=== PATIENT | female | born 1970 | race Caucasian/White ===

== ENCOUNTER → 2018-07-01 07:47 | Outpatient (CLI) | payer BC, SELFPAY ==
[2018-07-01 09:31] LABS: Absolute Lymphocyte Count 2.62 X10^3/ul (0.83-4.51); Basophil# 0.02 X10^3/uL; Basophil% 0.3 % (0-1); Eosinophil# 0.25 X10^3/uL; Eosinophils% 3.4 % (0-5); Hematocrit 46.7 % (37-47); Hemoglobin 15.5 g/dl (12.0-15.0); Lymphocyte # 2.62 X10^3/ul (4.0); Lymphocyte % 35.2 % (19-41); Mean Corp Hgb Conc 33.2 g/gl (32-36); Mean Corpuscular Hgb 29.6 pg (27.0-32.0); Mean Corpuscular Volume 89.1 fL (81-99); Mean Platelet Vol. 9.4 fl (6.2-12.0); Monocyte# 0.54 X10^3/uL; Monocyte% 7.3 % (0-10); Neutrophil # 4.01 X10^3/uL (2.7-7.7); Neutrophil % 53.8 % (47-70); Platelet Count 256 K/mm3 (150-450); RBC Distribution Width SD 38.9 fl (35.1-43.9); Red Blood Count 5.24 M/mm3 (4.2-5.4); White Blood Count 7.4 K/mm3 (4.4-11.0)
[2018-07-01 09:35] LABS: POSITIVE COUNT NO; POSITIVE DIFFERENTIAL NO; POSITIVE MORPHOLOGY NO
[2018-07-01 09:57] LABS: ALB/GLOB Ratio 1.1 RATIO (0.9-2.4); AST(SGOT) 17 U/L (15-37); Alanine Aminotransfer ALT/SGPT 33 U/L (13-56); Albumin, Serum 3.8 g/dL (3.2-5.0); Alkaline Phosphatase 91 U/L (45-117); BUN 12 mg/dL (7-18); BUN/Creat Ratio 15.9 RATIO (10-20); Calcium,Total 9.2 mg/dL (8.5-10.1); Cholesterol 219 mg/dL (200); Creatinine, Serum 0.76 mg/dL (0.55-1.02); EST Glomerular Filtration Rate 86 mL/min (>60); Est Glom Filt Rate - Afr Amer 105 mL/min (>60); Globulin 3.5 g/dL (2.2-4.2); Glucose 149 mg/dL (74-106); Protein, Total 7.3 g/dL (6.4-8.2)
[2018-07-01 09:58] LABS: Anion Gap 9 (5-15); Chloride 105 mmol/L (98-107); High Density Lipoprotein 42 mg/dL; Potassium 3.9 mmol/L (3.5-5.1); Sodium Level 142 mmol/L (136-145); Triglycerides 155 mg/dL; Very Low Density Lipoprotein 31 mg/dL (5-40)
[2018-07-02 12:42] LABS: Hemoglobin A1c 6.4 % (4.2-6.3)
== END ==
PROVIDERS: Family Provider Family Medicine; PCP Family Medicine; Visit Provider Family Medicine
DX: Z00.00 Encounter for general adult medical examination without abnormal findings (principal); R73.9 Hyperglycemia, unspecified; R03.0 Elevated blood-pressure reading, without diagnosis of hypertension; E89.40 Asymptomatic postprocedural ovarian failure
CPT/HCPCS: 36415; 77080; 80053; 80061; 83036; 85025

== ENCOUNTER → 2018-07-27 07:13 | Outpatient (CLI) | payer BC, SELFPAY ==
--- NOTE | 2018-07-27 07:14 | BI_ITS ---
MAMMOGRAPHY - BILATERAL SCREENING REASON FOR EXAM: Female, 47 years old. Routine annual screening examination. PERTINENT HISTORY: Non-contributory. History of bilateral breast reduction surgery. TECHNIQUE: Digital bilateral breast ghada (3D mammographic acquisition) in the CC and MLO projections. 2-D mediolateral oblique (MLO) and craniocaudad (CC) views of both breasts were obtained. CAD: Full Field Digital Mammography with Computer Added Detection was performed. COMPARISON: Comparison is made with prior study dated October 28, 2013 and September 17, 2012. FINDINGS: Breast Composition: There are scattered areas of fibroglandular density. There are no dominant masses or suspicious calcifications. No other significant abnormalities are identified. There has been no significant change since the prior study. BI/SCREENING MAMM (CAD), BILAT IMPRESSION: Stable bilateral screening mammogram. Yearly follow-up mammogram recommended. (A) ASSESSMENT CATEGORY: BIRADS Category 1: Negative. A letter regarding these results will be sent to the patient by the facility within 30 days. Approximately 10% of breast cancers are not detected by mammography. A normal mammogram should not delay biopsy of a clinically suspicious abnormality. [id number] Electronically Signed: Leonidas Rizo MD at 9:26 EDT Tel [phone], Service support ,
== END ==
PROVIDERS: Family Provider Family Medicine; PCP Family Medicine; Visit Provider Family Medicine
DX: Z12.31 Encounter for screening mammogram for malignant neoplasm of breast (principal)
CPT/HCPCS: 77063; 77067

== ENCOUNTER → 2018-08-04 11:54 | Outpatient (CLI) | payer BC, SELFPAY ==
--- NOTE | 2018-08-04 12:06 | US_ITS ---
STUDY: ABDOMINAL ULTRASOUND - RIGHT UPPER QUADRANT REASON FOR VISIT: Female, 47 years old. Right upper quadrant pain. TECHNIQUE: Ultrasound evaluation of the right upper quadrant was performed with real-time and static castro-scale imaging. TECHNICAL QUALITY: Adequate. COMPARISON: Comparison is made with prior examination dated December 01, 2014. FINDINGS: Liver: The liver measures 16 cm. There is increased echogenicity consistent with fatty infiltration. The bile ducts are within normal limits. There is hepatic color flow. The direction of portal flow is hepatopetal. There is no demonstrated mass lesion. Gallbladder: Normal distended gallbladder. The gallbladder wall measures 3.0 mm. There is a positive sonographic Pete's sign. There is minimal pericholecystic fluid. There is a solitary echogenic gallstone in the neck of the gallbladder. Common Bile Duct (C.B.D.): The common bile duct measures 6.0 mm. Pancreas: Normal size of the head, body and tail of the pancreas. There is normal echogenicity of the pancreas. There is no demonstrated pancreatic mass or cyst. Right Kidney: Normal size of the right kidney. The right kidney measures 9.8 cm x 4.7 cm x 4.3 cm. Normal renal cortex. The right cortex measures 1.4 cm. There is no demonstrated renal mass or cyst. There is no right hydronephrosis. US/Abdomen Limited IMPRESSION: Solitary gallstone in the neck of the gallbladder with a positive Pete's sign and a minimal amount of pericholecystic fluid. Acute cholecystitis should be ruled out. Electronically Signed: Leonidas Rizo MD at 12:59 EDT Tel [phone], Service support ,
== END ==
PROVIDERS: Family Provider Family Medicine; PCP Family Medicine; Referring Provider Family Medicine; Visit Provider Family Medicine
DX: R10.11 Right upper quadrant pain (principal); K80.20 Calculus of gallbladder without cholecystitis without obstruction
CPT/HCPCS: 76705

== ENCOUNTER 2018-08-04 12:47 | Observation (INO) | payer BC, SELFPAY ==
[2018-08-04] VITALS (11 sets, daily range): BP systolic 148–167; BP diastolic 88–107; PULSE 78–98; RESP 16–17; TEMP 36.3–37.1; O2SAT 92–97; BMI 24.5; BMI 23.3
--- NOTE | 2018-08-04 09:55 | GALL_PTH ---
PATIENT: DAVON ESQUIVEL LOC: MS3 U#:[id number] AGE/SX: 47/F ROOM: [facility] RE08/04/[address]: Dr. Jasmeet Brantley MD : 1970 BED: 1 DIS: 08/05/2018 SPEC #: [id number] RECD: 08/05/18 10:30 STATUS: JOHNNA ESTRADA #: [id number] ALIN: 08/04/18 09:[address]: Jasmeet Brantley DEPT: SURGICAL PATHOLOGY RECD BY: Viet Bellamy ENTERED: 08/05/18 11:10 SP TYPE: ANDREA BROOKS DR: Dr. Aga Roblero MD Tissues: Gallbladder, NOS Procedures: Surgery Specimen Level III HEADER OPERATION: Laparoscopic, cholecystectomy with IOC PRE-OP DIAGNOSIS: Acute cholecystitis, cholelithiasis TISSUE SUBMITTED: Gallbladder MICROSCOPIC DIAGNOSIS Gallbladder: Chronic cholecystitis and cholelithiasis. SJ:benigno 08/06/18 MICROSCOPIC DESCRIPTION Slides are reviewed. GROSS DESCRIPTION Received is one container labeled with the patient's name and designated gallbladder. The specimen consists of a gallbladder measuring 8 cm in length and up to 3 cm in diameter. The external surface is pink-mendoza, smooth and glistening for the most part. Focally it is granular, hemorrhagic and contains cautery artifact. The gallbladder contains green-yellow mucoid bile and one ovoid green stone measuring 2.5 x 2 x 1.5 cm. The mucosa is bile-stained and without any mass lesions. The gallbladder wall measures up to 0.4 cm in thickness. Elevator Repair Mechanic sections from the gallbladder and the cystic duct are submitted in one cassette. / IGNACIO:benigno 08/05/18 TC:4 CPT: 25913
[2018-08-04 13:26] LABS: Absolute Lymphocyte Count 2.01 X10^3/ul (0.83-4.51); Absolute Neutrophil Count 5.4 X10^3/uL (2.0-7.7); Basophil# 0.02 X10^3/uL; Basophil% 0.2 % (0-1); Eosinophil# 0.15 X10^3/uL; Eosinophils% 1.8 % (0-5); Hematocrit 44.1 % (37-47); Hemoglobin 15.2 g/dl (12.0-15.0); Lymphocyte # 2.01 X10^3/ul (4.0); Lymphocyte % 24.5 % (19-41); Mean Corp Hgb Conc 34.5 g/gl (32-36); Mean Corpuscular Hgb 30.3 pg (27.0-32.0); Monocyte# 0.58 X10^3/uL; Monocyte% 7.1 % (0-10); Neutrophil # 5.42 X10^3/uL (2.7-7.7); Neutrophil % 66.3 % (47-70); Platelet Count 225 K/mm3 (150-450); RBC Distribution Width CV 12.1 % (11.6-14.6); RBC Distribution Width SD 38.2 fl (35.1-43.9); Red Blood Count 5.01 M/mm3 (4.2-5.4); White Blood Count 8.2 K/mm3 (4.4-11.0)
[2018-08-04 13:30] LABS: POSITIVE COUNT NO; POSITIVE DIFFERENTIAL NO; POSITIVE MORPHOLOGY NO
[2018-08-04 13:39] LABS: ALB/GLOB Ratio 1.1 RATIO (0.9-2.4); AST(SGOT) 15 U/L (15-37); Alanine Aminotransfer ALT/SGPT 32 U/L (13-56); Albumin, Serum 3.8 g/dL (3.2-5.0); Alkaline Phosphatase 91 U/L (45-117); Anion Gap 6 (5-15); BUN 6 mg/dL (7-18); BUN/Creat Ratio 8.5 RATIO (10-20); Calcium,Total 8.7 mg/dL (8.5-10.1); Chloride 109 mmol/L (98-107); Creatinine, Serum 0.71 mg/dL (0.55-1.02); EST Glomerular Filtration Rate 93 mL/min (>60); Est Glom Filt Rate - Afr Amer 112 mL/min (>60); Estimated Creatinine Clearance 86.25 ml/min; Globulin 3.4 g/dL (2.2-4.2); Glucose 121 mg/dL (74-106); Lipase 212 U/L (73-393); Potassium 3.6 mmol/L (3.5-5.1); Protein, Total 7.2 g/dL (6.4-8.2); Sodium Level 143 mmol/L (136-145)
--- NOTE | 2018-08-04 14:25 | ED.VISSUMM ---
- ER Visit Summary Date of Service: 08/04/18 Chief Complaint: Abdominal pain History of Present Illness: The patient is a 47 F presenting for evaluation secondary to abdominal pain. Patient states that about 4 years ago she had a bout of abdominal pain that spontaneously resolved and she was diagnosed as having a gallstone on ultrasound. She reports that she really has not had any issues with that recently, but reports that today this morning she had a sudden onset of right upper quadrant abdominal pain that has been a continuous unrelenting pain that is worse with palpation. She reports that it is waxing and waning associated with nausea. Patient also endorses that she has been having some generalized malaise for a week and has also been having some intermittent loose stools this week. Patient had a ultrasound ordered by her primary care today which showed pericholecystic fluid and gallstones with positive sonographic Pete sign so she was sent to the urgency department. Physical Examination: Vital signs are within normal limits, patient is afebrile. General: Patient is well-nourished well-developed and in no acute distress. Head: Normocephalic, atraumatic Eyes: Pupils equal round and reactive bilaterally, extra occular motion intact bialterally ENT: Moist mucous membranes Neck: Supple, no lymphadenopathy, no JVD, no meningismus CVS: Heart regular rate and rhythm, no murmurs, rubs or gallops, radial pulses 2+ bilaterally Resp: Respirations nondistressed, lung sounds clear bilaterally Abdomen: Right upper quadrant tenderness to palpation with a positive Pete sign. Nondistended normal bowel sounds. No evidence of diffuse rigidity. Back: Nontender Extremities: Nontender, atraumatic, active full range of motion, no peripheral edema Skin: warm, no rashes, no petechia Neuro: Alert and oriented x 4, CN 2-12 intact, no lateralizing neurological defecits Psyc: Normal affect Test Results: CBC CMP and lipase are unremarkable, right upper quadrant ultrasound shows pericholecystic fluid with a large gallstone but no evidence of wall thickening and a positive sonographic Pete sign Emergency Department Course and Treatment: She presented for evaluation secondary to abdominal pain. Exam was concerning for cholecystitis. Laboratory studies were unremarkable, but the patient's ultrasound is concerning, so I did consult Dr. Brantley who will evaluate the patient at bedside. Disposition is pending his evaluation. Disposition: Pending surgery eval Impression: 1. Acute cholecystitis This note was generated with [employer] dictation software. It may contain incorrect words, spelling, and punctuation that were not noted in review of the chart prior to signing ED Disposition - Plan for ED Patient: Chief Complaint: Abd Pain Referrals: Aga Roblero MD [Primary Care Provider] -
--- NOTE | 2018-08-04 15:01 | HP.PCM_ITS ---
Problem List (1) Acute calculous cholecystitis Status: Acute History of Present Illness Date of Admission: 08/04/18 Chief Complaint: RUQ abdominal pain The patient is a 47 year old F who presents with a 1 day history of worsening epigastric/RUQ pain. Patient notes she had Austrian last night for dinner. She noted in the middle of the night she woke up with nausea, epigastric pain which has now moved to the RUQ. Patient also notes mid back pain and diarrhea for the last 1 week. She thought she had a stomach bug. Patient notes she had previously been evaluated by Shanell Burton for RUQ pain back in 2014. She had a RUQ u/s at that time showing solitary stone. She was told that with the size of the stone she would not need to have the gallbladder removed. Patient notes the pain waxes and wanes. Patient denies vomiting. She notes having watermelon and sprite this morning around 10:30 which caused discomfort. She denies smoking. Occasional alcohol. She notes being worked up for chest pain in 2013 which was unremarkable. Patient noted this was around the same time that she was worked up for gallbladder disease. She denies previous history of myocardial infarction, stroke, and blood clots. Patient notes previous abdominal surgery includes total hysterectomy. She notes nausea and vomiting with anesthesia. Patient denies daily routine medications. RUQ u/s demonstrates solitary gallstone in the neck of the gallbladder, minimal amount of pericholecystic fluid, positive ultrasound Pete's sign. WBC 8.2, Hgb 15.2, Hct 44.1, Plt 225. 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 Lives: Spouse/ Significant Other Smoking Status: Never smoker Alcohol: Occasional - *Family History Maternal History Items: No pertinent history Paternal History Items: Cancer Sibling History Items: Diabetes Review of Systems Constitutional: Reports: Anorexia, Fatigue HEENT: Denies: Head Aches, Sinus Congestion, Sinus Drainage Cardiovascular: Denies: Chest Pain, Palpitations Respiratory: Denies: Cough, Shortness of breath at rest, Sputum production Gastrointestinal: Reports: Abdominal Pain, Diarrhea, Nausea Genitourinary: Denies: Dysuria Musculoskeletal: Denies: Joint Pain, Joint Tenderness Skin: Denies: Rash, Wounds Neurological: Denies: Numbness, Tingling, Focal weakness Psychiatric: Denies: Anxiety, Depression, Homicidal Ideations, Suicidal Ideations Hematologic/ Lymphatic: Denies: Easy Bruising, Easy Bleeding VTE Information - Inpt Only VTE Present on Admission: Yes VTE Mechan Device Prophylaxis: SCD's Patient Problems: Active and Suspected Problems Acute calculous cholecystitis (Acute) - Physical Exam General: Alert, Oriented x3, Cooperative HEENT: Atraumatic, PERRLA, EOMI, Normocephalic Neck: Supple, No JVD, Negative Carotid Bruits Lungs: Clear to auscultation, Normal air movement Cardiovascular: Regular rate, No murmurs Abdomen: Bowel Sounds Present, Soft, Tender - RUQ. Positive Pete's sign, - - Low pelvic incision nicely healed Extremities: No edema, Capillary Refill Less than 3 Seconds Skin: No rashes, No breakdown Musculoskeletal: No Tenderness to Palpation of Joints or Extremities Neurological: Cranial nerves II-XII grossly intact, Neuro grossly intact Vital Signs Temp Pulse Resp BP Pulse Ox 98.7 F 81 16 148/89 H 95 08/04/18 14:53 08/04/18 14:53 08/04/18 14:53 08/04/18 14:53 08/04/18 14:53 Oxygen Delivery Method Room Air Weight: 147 lb 7.828 oz Body Mass Index (BMI) 24.5 Laboratory Tests Past 24 Hrs 08/04/18 08/04/18 13:16 13:16 WBC 8.2 RBC 5.01 Hgb 15.2 H Hct 44.1 MCV 88.0 MCH 30.3 MCHC 34.5 RDW 12.1 RDW Differential 38.2 Plt Count 225 MPV 9.0 Immature Gran % (Auto) 0.100 Neut % (Auto) 66.3 Lymph % (Auto) 24.5 [place] % (Auto) 7.1 Eos % (Auto) 1.8 Baso % (Auto) 0.2 Absolute Neuts (auto) 5.4 Absolute Lymphs (auto) 2.01 Total Counted Not Reportable Sodium 143 Potassium 3.6 Chloride 109 H Carbon Dioxide 28.0 Anion Gap 6 BUN 6 L Creatinine 0.71 Estim Creat Clear Calc 86.25 Est GFR (MDRD) Af Amer 112 Est GFR (MDRD) Non-Af 93 BUN/Creatinine Ratio 8.5 L Glucose 121 H Calcium 8.7 Total Bilirubin 0.60 AST 15 ALT 32 Alkaline Phosphatase 91 Total Protein 7.2 Albumin 3.8 Globulin 3.4 Albumin/Globulin Ratio 1.1 Lipase 212 Assessment/Plan All Active Problems Acute calculous cholecystitis (Acute) Chest pressure (Acute) I have been asked to see this patient in conjunction with Dr. Brantley. Impression: RUQ pain. Cholelithiasis. Acute cholecystitis. Plan: Patient discussed with Dr. Brantley. Dr. Brantley will plan to perform a laparoscopic cholecystectomy with intraoperative cholangiogram. Procedure details, risks and benefits were discussed with the patient and patient's . Patient has had the opportunity to ask and have questions answered. Patient verbally understands and agrees with the plan. Patient will plan for admission for observation following the procedure. Thank you for allowing me to participate in this patient's care. My recommendations will be available via electronic medical records. Code Visit Office Visits / Consults: [id number] IP Consult L3
--- NOTE | 2018-08-04 15:28 | ED.RN ---
REPORT TO MERLINE FINK IN OR.
[2018-08-04] MEDS: Cefazolin 2 GM in 0.9% Normal Saline 100 ML IV (16:05)
--- NOTE | 2018-08-04 16:25 | RAD_ITS ---
CLINICAL HISTORY: Female, 47 years old. Right upper quadrant pain. Gallstone. PROCEDURE: CHOLANGIOGRAM - intraoperative FLUOROSCOPY TIME (if supplied): (0:31) minutes/seconds TECHNIQUE: Single cine loop. FINDINGS: There is contrast seen within bile ducts entering into the duodenum. There is extravasation of contrast at the injection site. RAD/Cholangiogram/ O R,Initial IMPRESSION: Intraoperative fluoroscopy. Electronically Signed: Aguila Ellis MD at 21:53 EDT , Service support ,
--- NOTE | 2018-08-04 16:41 | DCINST_ITS ---
Discharge Diet: Light diet - advance as tolerated - if you have questions about your diet instructions, please talk to you doctor. Discharge Activity: May Not Drive - for 1 week or while taking narcotic pain medicine. May shower in (days): 1 Lifting Restrictions: 10 pounds Call your doctor if your incision/area has: Continuous Slow Oozing, Sudden Increased Bleeding, Increased Pain/ Swelling, Increased Redness, Foul Smelling Discharge Call your doctor if you observe: Fever of 101 or Higher Suture Line Care: Avoid Pulling/Pushing, Avoid Pinching/Bending Additional Dressing/Incision Instructions:: Change or remove dressing in 4 days. Leave steri-strips in place for 1 week. Allergies/Adverse Reactions: Allergies tetracycline [Tetracycline] Adverse Reaction (Verified 08/04/18 12:48) Other Medications to take at Discharge Hydrocodone Bitart/Apap 5-325 [[place] 5MG-325MG] 1 tablet PO Q6H PRN PRN 3 Days #8 tablet 08/04/18 The following prescriptions were given: Hydrocodone Bitart/Apap 5-325 [[place] 5MG-325MG] 1 tablet PO Q6H PRN PRN 3 Days #8 tablet PRN Reason: Pain Primary Care Physician: Aga Roblero MD [Primary Care Provider] - Test Results: Test results from this visit will be discussed in further detail at your follow- up appointment, if applicable. Please Follow Up With: Jasmeet Brantley MD - [phone] When: Call to make an appointment to be seen in about 10 days.
[2018-08-04] MEDS: Bupivacaine Mpf 0.5% 30 ML VIAL (16:47)
--- NOTE | 2018-08-04 17:54 | OP.PCM_ITS ---
Problem List (1) Acute calculous cholecystitis Status: Acute Report of Operation Date of Procedure: 08/04/18 Pre-Operative Diagnosis: Acute cholecystitis cholelithiasis Post-Operative Diagnosis: Same Surgery/Procedure Performed:: Laparoscopic cholecystectomy with cholangiography Description of Surgical Findings:: Timeout and informed consent was obtained. 46-year-old female was taken to the operating room. She was placed supine on the table. She underwent general endotracheal intubation anesthesia. Therapeutic Ancef unfortunately was not administered until just prior to the operation. The abdomen sterilely prepped and draped. 0.5% Marcaine was used as a local anesthetic. A total 30 cc was used. Skin sites were pre-anesthetized. A vertical infraumbilical incision was created. Holding sutures of 0 Vicryl placed. Varies needle inserted. Saline drop test performed. The abdomen was insufflated with CO2 to a pressure of 10 mmHg pressure. 10 mm trocar inserted. Stefani laparoscope inserted. Inspection revealed that there were adhesions of omentum to the infraumbilical midline incision from a previous hysterectomy. No evidence of any bowel involvement. No evidence of any trocar injury. The gallbladder however is grossly tightly distended with edema. Five-minute trochars were placed in the epigastric mid abdomen right upper quadrant. The gallbladder had to be suction aspirated to decompress it. There were adhesions of omentum and duodenum to the gallbladder wall. These had to be carefully sharply and bluntly dissected free. Then tediously the infundibular area was dissected free. The cystic artery was nicely identified it was clipped twice proximally once distally prior to transecting it. There was a bulbous right hepatic artery that had to be d issected free. The hepatocystic angle was fully exposed. A Hem-o-chavez clip was placed on the cystic duct. Incision made in cystic duct. Through a 14-gauge Angiocath a plantar Cruz catheter was inserted. Fluoroscopically controlled claims grams obtained demonstrating normal ductal anatomy and free flow to the small bowel. The cholangiogram catheter was removed. 2 Hem-o-chavez clips were placed on the cystic duct stump prior to transecting it. The gallbladder was then tediously dissected free from the liver. Edema plane was present consistent with acute inflammation. The gallbladder was released. The liver bed was hemostatic. Additional fibular was placed to assure hemostasis. The gallbladder was placed in retrieval bag. The right upper quadrant was irrigated and aspirated free of excess fluid. The gallbladder was exited the umbilicus with slight fascial enlargement. The remaining trochars removed under visualization. The abdomen was allowed to deflate of CO2. The fascia at the umbilicus approximated interrupted 0 Vicryl figure 8 suture. Skin edges were approximated interrupted 4 Monocryl subdermal stitches. Ml-Strips Telfa and OpSite dressings applied. Sponge and instrument and needle counts were reported to the surgeon to be correct. Blood loss was minimal. She tolerated the procedure well was taken to the recovery room in satisfactory condition without apparent complication. Specimens gallbladder. Drains none. Blood loss minimal. Jasmeet Brantley M.D., F.A.C.S. Type of Anesthesia:: General Anesthesiologist: Prasanna Conn
[2018-08-04] MEDS: HYDROcodone Bitartrate/Apap 5/325 Tablet PO (22:10)
[2018-08-04] MEDS: 0.9% Normal Saline 1,000 ML 75 ML IV (22:15)
[2018-08-05] MEDS: Cefazolin 2 GM in 0.9% Normal Saline 100 ML IV ×2 (00:18→05:30)
[2018-08-05 00:28] VITALS: BP 130/87; PULSE 100; RESP 16; TEMP 37.1; O2SAT 94
[2018-08-05 04:36] VITALS: BP 133/84; PULSE 89; RESP 16; TEMP 37.1; O2SAT 94
--- NOTE | 2018-08-05 05:31 | PN.SURG_ITS ---
Patient Problems: Active and Suspected Problems Acute calculous cholecystitis (Acute) Subjective: Feels better than preop - Physical Exam Abdomen: Bowel Sounds Present, Soft, Tender Vital Signs Temp Pulse Resp BP Pulse Ox 98.7 F 89 16 133/84 H 94 08/05/18 04:36 08/05/18 04:36 08/05/18 04:36 08/05/18 04:36 08/05/18 04:36 Oxygen Flow Rate (L/min) 2 Oxygen Delivery Method Nasal Cannula Weight: 140 lb Body Mass Index (BMI) 23.3 Intake and Output for Last 24 Hours 08/03/18 08/04/18 08/05/18 23:59 23:59 23:59 Intake Total 1700 / 1700 390 / 390 Output Total 285 / 285 600 / 600 Balance 1415 / 1415 -210 / -210 Laboratory Tests Past 24 Hrs 08/04/18 08/04/18 13:16 13:16 WBC 8.2 RBC 5.01 Hgb 15.2 H Hct 44.1 MCV 88.0 MCH 30.3 MCHC 34.5 RDW 12.1 RDW Differential 38.2 Plt Count 225 MPV 9.0 Immature Gran % (Auto) 0.100 Neut % (Auto) 66.3 Lymph % (Auto) 24.5 [place] % (Auto) 7.1 Eos % (Auto) 1.8 Baso % (Auto) 0.2 Absolute Neuts (auto) 5.4 Absolute Lymphs (auto) 2.01 Total Counted Not Reportable Sodium 143 Potassium 3.6 Chloride 109 H Carbon Dioxide 28.0 Anion Gap 6 BUN 6 L Creatinine 0.71 Estim Creat Clear Calc 86.25 Est GFR (MDRD) Af Amer 112 Est GFR (MDRD) Non-Af 93 BUN/Creatinine Ratio 8.5 L Glucose 121 H Calcium 8.7 Total Bilirubin 0.60 AST 15 ALT 32 Alkaline Phosphatase 91 Total Protein 7.2 Albumin 3.8 Globulin 3.4 Albumin/Globulin Ratio 1.1 Lipase 212 Medical Necessity - Tobacco Use Smoking Status: Never smoker Assessment/Plan All Active Problems Acute calculous cholecystitis (Acute) Chest pressure (Acute) Still on oxygen Need to mobilize Discharge plans today
[2018-08-05] MEDS: 0.9% Normal Saline 1,000 ML 30 ML IV (06:28)
[2018-08-05 07:56] VITALS: BP 113/74; PULSE 69; RESP 16; TEMP 36.6; O2SAT 93
[2018-08-05] MEDS: Acetaminophen 325 MG Tablet 650 MG PO (09:23)
== END 2018-08-05 09:43 | disposition home or self-care (01) ==
LOC: ED 14:33 → SDC 14:42 → AC 14:44 → SDC 19:20 → MS3 19:20
PROVIDERS: Admitting Provider Surgery; Emergency Provider Emergency Medicine; Family Provider Family Medicine; PCP Family Medicine; Visit Provider Surgery
PROC: (CPT 47610; principal; 2018-08-04 09:35)
DX: K80.12 Calculus of gallbladder with acute and chronic cholecystitis without obstruction (principal)
CPT/HCPCS: 00790; 47563; 74300; 76000; 80053; 83690; 85025; 88304; 96361; 96365; 96366; 99218; 99282; J7030; A4216; G0378

== ENCOUNTER 2020-01-05 09:30 | Outpatient (RCR) | payer BC, SELFPAY ==
--- NOTE | 2019-11-03 12:35 | HP.PTEVAL_ITS ---
Patient's Visit Information DAVON ESQUIVEL is a 48 year old F referred to Physical Therapy by DUONG MONTGOMERY with a diagnosis of LEFT THR 09/27/19. Date of Evaluation: 11/03/19 Physical Therapist: Kanwal Curtis, PT, Cert MDT - Visit Plan Frequency: 3x /Week Duration: 4 Weeks Plan: GAIT AND BALANCE TRAINING. AQUATIC THERAPY FOR PAIN RELEIF, POSTURE CORRECTION/STRENGTHENING, LLE SENSATION STIMULATION, INSTRUCTION IN APPROPRIATE BODY MECHANICS AND ACTIVITY MODIFICATIONS. DLS STARTING WITH A NEUTRAL SPINE PROGRESSING ROM TOLERATED. CORNELIUS LE ROM, STRETCHING AND STRENGTHENING PER LEFT THR PROTOCOL. HEP INSTRUCTION. ONLY RESTRICTION PATIENT IS AWARE OF IS LEFT SIDEBENDING IN SITTING. 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 Disability: NO. Present symptoms: LEFT BUTTOCK PAIN. INTERMITTENT LEFT LEG PAIN - LEFT KNEE. AFTER SURGERY HAD A LOT OF TINGLING IN FOOT BUT IT IS GETTING BETTER NOW. LEFT FOOT TINGLING IS INTERMITTENT NOW. LEFT LATERAL LEG CONSTANT NUMBESS. THE TINGLING IN THE LEFT FOOT AND NUMBNESS IN THE LEFT LEG ARE NEW. AFTER SURGERY BOTH FEET WERE GETTING REALLY COLD AND STINGY. RIGHT ONE IS BACK TO NORMAL BUT LEFT STILL SYMPTOMATIC. INTERMITTENT LOW BACK PAIN. PATIENT REPORTS SHE HAD WAS HAVING LOW BACK PAIN PRETTY CONSTANT BEFORE HER LEFT THR AND STILL HAS BACK PAIN BUT NOT MUCH AND NOT OFTEN. Present since: 2014 BECAME PROBLEMATIC. Pain Scale: WORST 5/10, LEAST 0/10. Currently: 0/10. Commenced as a result of: MULTIPLE HEREDITARY EXTOSIS. Symptoms at onset: LEFT. Worse: STAYING IN ONE POSITION TOO LONG. TRYING TO WALK WITHOUT CANE. Better: LYING DOWN, CHANGING POSITION. Disturbed sleep: YES. Previous history/Previous treatment: LEFT HIP INJECTION. AQUATIC THERAPY HERE AT [facility]. NO BACK SURGERY. NO LUMBAR SHAAN'S. HOME HEALTH PT FOR ABOUT 4 - [address] [facility] AFTER THIS THR. Coughing/sneezing/straining: POSITIVE. Gait: IT IS HARD TO PUT FULL WEIGHT ON LLE. 25% WEIGHT BEARING RESTRICTION X 4 WEEKS. HAS GRADUALLY BEEN TRYING TO INCREASE WEIGHT BEARING. CURRENTLY WBAT AND WEIGHT BEARING IS DIFFICULT. WALKS BETTER WITH THE CANE. VERY HARD TO WALK WITHOUT AD. WALKING WITHOUT AD IS NO BETTER NOW THAN BEFORE SURGERY. Difficulty initiating urinatin: NO. Accidents: NO. Unexplained weight loss: NO. Imaging: PATIENT REPORTS THE SURGEON TOLD HER RECENT X-RAYS LOOK GOOD BUT RESTRICTED WT BEARING INITIALLY BECAUSE HER BONES ARE SOFT. ALL RESTRICTIONS HAVE BEEN LIFTING EXCEPT BENDING TO THE LEFT. PMH: MULTIPLE HEREDITARY EXTOSIS - HAS HAD MULTIPLE BONE SPURS REMOVED. OTHER: REPORTS THAT THE SURGEON TOLD HER HER HIP WAS A MESS AND IT WAS LIKE TRYING TO PUT A ROUND PEG IN A SQUARE HOLE. PATIENT ALSO REPORTS LEFT LEG IS LONGER THAN RIGHT SINCE SURGERY AND WEARING RIGHT SHOE LIFT. RIGHT THR ANTICIPATED IN THE FUTURE BUT LLE NEEDS TO GET STRONG POSSIBLE FIRST. - Objective Sitting/Standing Posture: POOR. REDUCED LORDOSIS AND RELUCTANT TO FULLY WEIGHT BEAR ON LLE. Active Correction of posture: INCREASES LEFT HIP PAIN. Other Observations: INDEP GAIT INTO PT WITH A STRAIGHT CANE IN RIGHT UE. DEPENDENCE ON CANE TO MINIMIZE LURCHING FROM SIDE TO SIDE AND TO INCREASE WEIGHT BEARING TIME ON THE LLE. WITHOUT THE CANE QUALITY OF GAIT IS GREATLY DEMINISHED. SHE DEMO'S MORE LIMPING, MORE LURCHING AND DECREASED CADANCE WITHOUT CANE COMPARED TO WITH IT. Motor deficit: RIGHT LE WFL. LLE: HIP 4-/5, KNEE 4/5, ANKLE 4/5. Sensory deficit: ALTERED LIGHT TOUCH OF LEFT LAT LEG AND FOOT COMPARED TO RIGHT. ROM deficit: RIGHT LE WFL. DECREASED LEFT HIP MOBILITY ALL PLANES. LEFT KNEE AND ANKLE ROM WFL. Reflexes: 2/2 RIGHT LE, 1/2 LLE. Dural Signs: NEGATIVE RIGHT LE AND POSITIVE LLE. Lumbar mvmt loss: flex - MIN. ext - MOD. R SG - MOD. L SG - MOD. (PATIENT REPORTS SHE IS ONLY SUPPOSED TO AVOID LEFT SIDE BENDING IN SITTING NOT STANDING). Core strength: POOR. Palpation: INCISION LOOKS GOOD WITHOUT ANY SIGNS OF INFECTION. OTHER: PATIENT IS A GOOD AQUATIC THERAPY CANDIDATE WITH TRANSITION TO LAND TOLERATED. - Goals Goal 1:: DECREASE C/O LEFT LE PAIN (AVOID INCREASING LBP). Goal Time Frame: 6 WEEKS Goal 2:: INDEP AND SAFE GAIT ON ALL SURFACES WITH LEAST AD AND LEAST DEVATIONS. Goal Time Frame: 6 WEEKS Goal 3:: INCREASE FUNCTIONAL ROM OF LLE TO IMPROVE GAIT Goal Time Frame: 6 WEEKS Goal 4:: INCREASE FUNCTIONAL CORE AND LLE STRENGTH TO IMPROVE GAIT Goal Time Frame: 6 WEEKS Goal 5:: INDEP HEP FOR CONTINUED IMRPOVEMENT ONCE FORMAL PHYSICAL THERAPY CONCLUDES. Goal Time Frame: 6 WEEKS. - Rehabilitation Potential Rehabilitation Potential: Good - Anticipated Interventions Patient/Client Instruction: Educate patient on: Condition, Plan of Care, Risk Factors, Benefits of Fitness Program For the Purpose of:: To improve self management Therapeutic Exercise to Include: Strength training, Balance training, Body mechanics, Postural training, Flexibilty training, Gait and locomotor training, In an aquatic setting, Dynamic Lumbar Stabilization For the Purpose of:: To increase ROM, To improve muscle performance and motor function, To increase tolerance to activity/condition/position, To improve ability of physical actions for home/community/work/leisure, To improve gait and locomotor functions Thank you for the opportunity to evaluate your patient. For Medicare and Medicare HMO plans, please review the plan of care and approve it. It will need to be FAXED BACK to us at [phone] for Medicare purposes. For Medicare only, by signing this I certify the plan of care. Please let me know if there are questions or concerns regarding this plan of care. Physician Signature: Date:___
--- NOTE | 2019-12-06 11:39 | HP.PTREVAL ---
DUONG MONTGOMERY, It has been my pleasure to treat DAVON ESQUIVEL over the last 10 visits for LEFT THR 09/27/19. Please see the progress note below for an update on the physical therapy plan of care! Subjective: PATIENT REPORTS SHE IS BETTER BUT FEELS SHE HAS A LONG WAY TO GO. STATES SHE FEELS MORE STEADY AND IS STARTING TO GO SOME WITHOUT THE CANE AT HOME ALTHOUGH IT MAKES HER SORE. STATES SHE CAN SIT LONGER AND SHE IS A LITTLE MORE FLEXIBLE. PATIENT REPORTS SHE IS IN THE KITCHEN MORE AND THAT GOES A LITTLE EASIER. SHE ALSO REPORTS SHE CAN WALK LONGER THAN BEFORE. I CAN STILL HARDLY GET MY SOCK ON THOUGH. PATIENT REPORTS SHE ONLY HAS INTERMITTENT NUMBNESS IN THE LEFT LATERAL LEG. ALL OTHER CORNELIUS LE NUMBNESS AND TINGLING HAS RESOLVED. SHE REPORTS SHE VERY SELDOM HAS PAIN > 1/10 NOW. PATIENT REPORTS SHE WOULD LIKE TO CONTINUE PT TO TRY TO GET MORE FLEXABILITY AND WALK BETTER. Objective/Function: PATIENT WAS SEEN TODAY FOR RE-ASSESSMENT OF PROGRESS TOWARD THE SET PT GOALS AND THE NEED FOR FURTHER PHYSICAL THERAPY VS READINESS FOR DISCHARGE. PATIENT IS MAKING SLOW PROGRESS TOWARD ALL PT GOALS AND IS A GOOD CANDIDATE TO CONTINUE FORMAL PT 2X'S A WEEK TO PROGRESS CORE STABILITY AND LE ROM, STRETCHING AND STRENGTHENING ALONG WITH GAIT TRAINING. UPON EXAM TODAY: INDEP GAIT INTO PT WITH A STRAIGHT CANE IN RIGHT UE. DEPENDENCE ON CANE TO MINIMIZE MILD LURCHING FROM SIDE TO SIDE AND TO INCREASE WEIGHT BEARING TIME ON THE LLE. WITHOUT THE CANE QUALITY OF GAIT IS ONLY MILDLY DEMINISHED NOW. Motor deficit: RIGHT LE WFL. LLE: HIP 4/5 (WITH MMT), KNEE 5/5, ANKLE 5/5. Sensory deficit: ALTERED LIGHT TOUCH OF LEFT LAT LEG AND FOOT COMPARED TO RIGHT AND LEFT LAT THIGH FEELS TINGLY WITH TESTING. ROM deficit: DECREASED LEFT HIP MOBILITY ALL PLANES. LEFT KNEE AND ANKLE ROM WFL. LEFT HIP APPROX ROM: FLEX 80 DEG, ABD 30 DEG. ER 30 DEG, IR 10 DEG. Reflexes: 2/2 RIGHT LE, 1/2 LLE. Dural Signs: NEGATIVE RIGHT LE AND POSITIVE LLE. Lumbar mvmt loss: flex - MIN. ext - MOD. R SG - MOD. L SG - MOD. (PATIENT REPORTS SHE IS ONLY SUPPOSED TO AVOID LEFT SIDE BENDING IN SITTING NOT STANDING). Core strength: POOR Plan Plan: *Avoid increasing LBP AND seated L trunk SBing. *THR: 09/13/19. CONTINUE PT 2X'S A WEEK X 5 WEEKS FOR GAIT TRAINING AND BALANCE TRAINING. LLE ROM, STRETCHING AND STRENGTHENING. CORE STABILIZATION. PATIENT IS AGREEABLE. Goals Goal 1:: DECREASE C/O LEFT LE PAIN (AVOID INCREASING LBP). Goal Time Frame: 6 WEEKS Goal Progress: Progressing Goal 2:: INDEP AND SAFE GAIT ON ALL SURFACES WITH LEAST AD AND LEAST DEVATIONS. Goal Time Frame: 6 WEEKS Goal Progress: Progressing Goal 3:: INCREASE FUNCTIONAL ROM OF LLE TO IMPROVE GAIT Goal Time Frame: 6 WEEKS Goal Progress: Progressing Goal 4:: INCREASE FUNCTIONAL CORE AND LLE STRENGTH TO IMPROVE GAIT Goal Time Frame: 6 WEEKS Goal Progress: Progressing Goal 5:: INDEP HEP FOR CONTINUED IMRPOVEMENT ONCE FORMAL PHYSICAL THERAPY CONCLUDES. Goal Time Frame: 6 WEEKS. Goal Progress: Progressing Anticipated Interventions Patient/Client Instruction: Educate patient on: Condition, Plan of Care, Risk Factors, Benefits of Fitness Program For the Purpose of:: To improve self management Therapeutic Exercise to Include: Strength training, Balance training, Body mechanics, Postural training, Flexibilty training, Gait and locomotor training, In an aquatic setting, Dynamic Lumbar Stabilization For the Purpose of:: To increase ROM, To improve muscle performance and motor function, To increase tolerance to activity/condition/position, To improve ability of physical actions for home/community/work/leisure, To improve gait and locomotor functions Please do not hesitate to contact me at [phone] by phone or if you have questions or concerns regarding this new plan of care! Sincerely, Kanwal Curtis, PT, Cert MDT
--- NOTE | 2020-01-05 11:01 | HP.PTDCSUM ---
HP - PT D/C Summary It has been my pleasure to treat DAVON ESQUIVEL under orders from DUONG MONTGOMERY, for the diagnosis of LEFT THR 09/27/19 for a total of 14 visit(s). Discharge Date: 01/05/20 Please see the following information for a summary of their discharge status. - Subjective Subjective: PATIENT REPORTS SHE CAN WALK NOW WITH LESS PAIN. THE PAIN IS MORE TOLERABLE NOW. BEFORE THE PAIN WOULD STOP ME IN MY TRACKS. I CAN SIT BETTER, IT IS MUCH EASIER TO GET IN AND OUT OF THE CAR. PATIENT REPORTS SHE USE TO HAVE TO LIFT HER LEG IN/OUT OF THE CAR. OVER-ALL GOING BETTER GETTING SOCKS ON. PAIN OVER-ALL IS GETTING BETTER. LLE NUMBNESS IS STAYING THE SAME. HAS BEEN DOING THE NEW STRETCHES BUT THEY MIGHT BE MAKING IT HARDER TO GET GOING AFTER SITTING AND IN THE MORNINGS. NOT USING CANE ANYMORE. - Pain L Hip Pain Intensity (Out of 10): 1 Lumbar Spine Pain Intensity (Out of 10): 0 - Overall Improvement % Improvement: 70 - Objective Objective/Function: PATIENT WAS SEEN TODAY FOR RE-ASSESSMENT OF PROGRESS TOWARD THE SET PT GOALS AND THE NEED FOR FURTHER PHYSICAL THERAPY VS READINESS FOR DISCHARGE. PATIENT IS CONTINUEING TO MAKE SLOW PROGRESS BUT IS ONLY ABLE TO TOLERATE SMALL PROGRESSIONS AND WOULD LIKE TO CONTINUE ON HER OWN WITH HER HEP AT THIS TIME. UPON EXAM TODAY: PATIENT AMBULATES INDEP'LY INTO PT WITHOUT ANY ASSISTIVE DEVICES BUT WITH DECREASED CADANCE COMPARED TO LAST VISIT. SHE REPORTS SHE HAS BEEN HAVING A LITTLE MORE DIFFICULTY WALKING THE LAST FEW DAYS. WE DISCUSSED HER NEW STRETCHES AND MODIFICATIONS TO TRY. SHE ALSO REPORTS SHE IS HAVING HER HELP HER STRETCH AND SHE DID TELL HIM TO EASE UP A BIT. Motor deficit: RIGHT LE WFL. LLE: HIP 4/5 IN AVAILABLE RANGE, KNEE 5/5, ANKLE 5/5. Sensory deficit: ALTERED LIGHT TOUCH OF LEFT LAT LEG AND FOOT COMPARED TO RIGHT AND LEFT LAT THIGH FEELS TINGLY. ROM deficit: DECREASED LEFT HIP MOBILITY ALL PLANES. LEFT KNEE AND ANKLE ROM WFL. LEFT HIP ROM: FLEX 80 DEG, ABD 44 DEG. ER 28 DEG, IR 18 DEG. PAIN CAN BE EASILY PRODUCED IN RIGHT HIP WITH STRETCHING ALL PLANES. Lumbar mvmt loss: flex - NIL. ext - MOD. R SG - MIN. L SG - MIN. PATIENT DENIES INCREASED PAIN WITH LUMBAR ROM TESTING. Core strength: POOR - Goals Goal 1:: DECREASE C/O LEFT LE PAIN (AVOID INCREASING LBP). Goal Progress: Goal Met Goal 2:: INDEP AND SAFE GAIT ON ALL SURFACES WITH LEAST AD AND LEAST DEVATIONS. Goal Progress: Goal Met Goal 3:: INCREASE FUNCTIONAL ROM OF LLE TO IMPROVE GAIT Goal Progress: Progressing Goal 4:: INCREASE FUNCTIONAL CORE AND LLE STRENGTH TO IMPROVE GAIT Goal Progress: Goal Met Goal 5:: INDEP HEP FOR CONTINUED IMRPOVEMENT ONCE FORMAL PHYSICAL THERAPY CONCLUDES. Goal Progress: Goal Met - Plan Plan: D/C TO INDEP HEP - D/C Information If there are questions or concerns regarding this patient's physical therapy, please feel free to call me at [phone]. Thank you for the referral of this patient. Sincerely, Kanwal Curtis, PT, Cert MDT
== END 2020-01-05 19:00 | disposition home or self-care (01) ==
LOC: PT 09:30
PROVIDERS: Family Provider Family Medicine; PCP Family Medicine
DX: Z47.1 Aftercare following joint replacement surgery (principal)
CPT/HCPCS: 97110; 97113; 97140; 97162; 97164; 97530

== ENCOUNTER → 2020-03-16 08:49 | Outpatient (CLI) | payer BC, SELFPAY ==
[2018-08-04 20:28] VITALS: BMI 23.3
[2020-03-16 09:59] LABS: Absolute Lymphocyte Count 2.25 X10^3/uL (0.83-4.51); Absolute Neutrophil Count 2.9 X10^3/uL (2.0-7.7); Basophil# 0.02 X10^3/uL; Basophil% 0.3 % (0-1); Eosinophil# 0.22 X10^3/uL; Eosinophils% 3.8 % (0-5); Hematocrit 47.2 % (37-47); Hemoglobin 15.5 g/dL (12.0-15.0); Lymphocyte # 2.25 X10^3/ul (4.0); Lymphocyte % 38.5 % (19-41); Mean Corp Hgb Conc 32.8 g/dL (32-36); Mean Corpuscular Hgb 30.3 pg (27.0-32.0); Mean Corpuscular Volume 92.2 fL (81-99); Mean Platelet Vol. 9.7 fl (6.2-12.0); Monocyte# 0.42 X10^3/uL; Monocyte% 7.2 % (0-10); NRBC Flagged by Analyzer 0 % (0-5); Neutrophil % 49.7 % (47-70); Platelet Count 196 K/mm3 (150-450); RBC Distribution Width CV 12.1 % (11.6-14.6); RBC Distribution Width SD 40.8 fl (35.1-43.9); Red Blood Count 5.12 M/mm3 (4.2-5.4); White Blood Count 5.8 K/mm3 (4.4-11.0)
[2020-03-16 10:20] LABS: ALB/GLOB Ratio 1.2 RATIO (0.9-2.4); AST(SGOT) 28 U/L (15-37); Alanine Aminotransfer ALT/SGPT 50 U/L (13-56); Albumin, Serum 3.8 g/dL (3.2-5.0); Alkaline Phosphatase 102 U/L (45-117); Anion Gap 6 (5-15); BUN 9 mg/dL (7-18); Calcium,Total 8.8 mg/dL (8.5-10.1); Chloride 110 mmol/L (98-107); Cholesterol 216 mg/dL (200); Creatinine, Serum 0.75 mg/dL (0.55-1.02); EST Glomerular Filtration Rate 87 mL/min (>60); Est Glom Filt Rate - Afr Amer 105 mL/min (>60); Globulin 3.2 g/dL (2.2-4.2); Glucose 210 mg/dL (74-106); High Density Lipoprotein 47 mg/dL; Potassium 3.8 mmol/L (3.5-5.1); Sodium Level 143 mmol/L (136-145); Triglycerides 163 mg/dL; Very Low Density Lipoprotein 33 mg/dL (5-40)
[2020-03-16 10:30] LABS: Hemoglobin A1c 8.7 % (4.2-6.3)
== END ==
PROVIDERS: PCP Family Medicine; Referring Provider Family Medicine; Visit Provider Family Medicine
DX: Z00.01 Encounter for general adult medical examination with abnormal findings (principal); R73.01 Impaired fasting glucose; M85.80 Other specified disorders of bone density and structure, unspecified site
CPT/HCPCS: 36415; 80053; 80061; 83036; 85025

== ENCOUNTER → 2020-10-19 11:06 | Outpatient (CLI) | payer BC, SELFPAY ==
[2018-08-04 20:28] VITALS: BMI 23.3
[2020-10-19 16:14] LABS: ALB/GLOB Ratio 1.2 RATIO (0.9-2.4); AST(SGOT) 19 U/L (15-37); Alanine Aminotransfer ALT/SGPT 44 U/L (13-56); Alkaline Phosphatase 98 U/L (45-117); Anion Gap 4 (5-15); BUN 10 mg/dL (7-18); BUN/Creat Ratio 14.4 RATIO (10-20); Calcium,Total 9.2 mg/dL (8.5-10.1); Chloride 112 mmol/L (98-107); Creatinine, Serum 0.69 mg/dL (0.55-1.02); EST Glomerular Filtration Rate 95 mL/min (>60); Est Glom Filt Rate - Afr Amer 114 mL/min (>60); Globulin 3.4 g/dL (2.2-4.2); Glucose 101 mg/dL (74-106); Potassium 3.5 mmol/L (3.5-5.1); Protein, Total 7.4 g/dL (6.4-8.2); Sodium Level 144 mmol/L (136-145)
[2020-10-19 16:20] LABS: Microalbumin,Random Urine 14.7 mg/L (NO RANGE EST.); Microalbumin:Creatinine Ratio 10.8 mg/g CRE (<30 mg/g CRE)
== END ==
PROVIDERS: PCP Family Medicine; Visit Provider Family Medicine
DX: E11.9 Type 2 diabetes mellitus without complications (principal)
CPT/HCPCS: 36415; 80053; 82043; 82570

== ENCOUNTER → 2021-05-09 10:50 | Outpatient (CLI) | payer BC, SELFPAY ==
[2018-08-04 20:28] VITALS: BMI 23.3
[2021-05-09 12:23] LABS: Anion Gap 3 (5-15); BUN 8 mg/dL (7-18); BUN/Creat Ratio 10.7 RATIO (10-20); Calcium,Total 8.9 mg/dL (8.5-10.1); Chloride 105 mmol/L (98-107); Cholesterol 211 mg/dL (200); Creatinine, Serum 0.75 mg/dL (0.55-1.02); EST Glomerular Filtration Rate 87 mL/min (>60); Est Glom Filt Rate - Afr Amer 105 mL/min (>60); Glucose 148 mg/dL (74-106); High Density Lipoprotein 49 mg/dL; Potassium 3.8 mmol/L (3.5-5.1); Sodium Level 139 mmol/L (136-145); Triglycerides 137 mg/dL; Very Low Density Lipoprotein 27 mg/dL (5-40)
== END ==
PROVIDERS: PCP Family Medicine; Referring Provider Family Medicine; Visit Provider Family Medicine
DX: E11.9 Type 2 diabetes mellitus without complications (principal)
CPT/HCPCS: 36415; 80048; 80061

== ENCOUNTER → 2021-06-05 12:57 | Outpatient (CLI) | payer BC, SELFPAY ==
[2018-08-04 20:28] VITALS: BMI 23.3
--- NOTE | 2021-06-05 12:59 | BI_ITS ---
MAMMOGRAPHY - BILATERAL SCREENING REASON FOR EXAM: Female, 50 years old. Routine annual screening examination. PERTINENT HISTORY: Non-contributory. TECHNIQUE: Digital bilateral breast stefanie (3D mammographic acquisition) in the CC and MLO projections. 2-D mediolateral oblique (MLO) and craniocaudad (CC) views of both breasts were obtained. CAD: Full Field Digital Mammography with Computer Added Detection was performed. COMPARISON: Comparison is made with prior study dated 07/27/2018 is 10/28/2013. FINDINGS: Breast Composition: There are scattered areas of fibroglandular density. There are no dominant masses or suspicious calcifications. Small benign-appearing bilateral axillary lymph nodes. No other significant abnormalities are identified. There has been no significant change since the prior study. BI/SCRN MAMM (CAD)W/STEFANIE BILAT IMPRESSION: Stable bilateral screening mammogram. Yearly follow-up mammogram recommended. (A) ASSESSMENT CATEGORY: BIRADS Category 2: Benign. A letter regarding these results will be sent to the patient by the facility within 30 days. Approximately 10% of breast cancers are not detected by mammography. A normal mammogram should not delay biopsy of a clinically suspicious abnormality. [id number] Electronically Signed: Leonidas Rizo MD at 14:06 EDT , Service support ,
== END ==
PROVIDERS: PCP Family Medicine; Referring Provider Family Medicine; Visit Provider Family Medicine
DX: Z12.31 Encounter for screening mammogram for malignant neoplasm of breast (principal)
CPT/HCPCS: 77063; 77067

== ENCOUNTER → 2022-09-18 | Outpatient (CLI) | payer BC, SELFPAY ==
--- NOTE | 2022-09-18 07:48 | BI_ITS ---
MAMMOGRAPHY - BILATERAL SCREENING REASON FOR EXAM: Female, 51 years old. Routine annual screening examination. PERTINENT HISTORY: Non-contributory. TECHNIQUE: Digital bilateral breast stefanie (3D mammographic acquisition) in the CC and MLO projections. 2-D mediolateral oblique (MLO) and craniocaudad (CC) views of both breasts were obtained. CAD: Full Field Digital Mammography with Computer Added Detection was performed. COMPARISON: Comparison is made with prior study dated 05/28/2021 and 07/27/2018. FINDINGS: Breast Composition: There are scattered areas of fibroglandular density. There are no dominant masses or suspicious calcifications. Stable small benign-appearing bilateral axillary lymph node. No other significant abnormalities are identified. There has been no significant change since the prior study. BI/SCRN MAMM (CAD)W/STEFANIE BILAT IMPRESSION: Stable bilateral screening mammogram. Yearly follow-up mammogram recommended. (A) ASSESSMENT CATEGORY: BIRADS Category 2: Benign. A letter regarding these results will be sent to the patient by the facility within 30 days. Approximately 10% of breast cancers are not detected by mammography. A normal mammogram should not delay biopsy of a clinically suspicious abnormality. [id number] Electronically Signed: Leonidas Rizo MD at 9:06 EST ,
[2022-09-18 08:36] LABS: Absolute Lymphocyte Count 2.45 X10^3/uL (0.83-4.51); Absolute Neutrophil Count 3.8 X10^3/uL (2.0-7.7); Basophil# 0.04 X10^3/uL; Basophil% 0.6 % (0-1); Eosinophil# 0.21 X10^3/uL; Hematocrit 48.2 % (37-47); Hemoglobin 15.7 g/dL (12.0-15.0); Lymphocyte # 2.45 X10^3/ul (0.83-4.51); Lymphocyte % 35.3 % (19-41); Mean Corp Hgb Conc 32.6 g/dL (32-36); Mean Corpuscular Hgb 29.5 pg (27.0-32.0); Mean Corpuscular Volume 90.4 fL (81-99); Mean Platelet Vol. 9.1 fl (6.2-12.0); Monocyte# 0.42 X10^3/uL; Monocyte% 6.1 % (0-10); NRBC Flagged by Analyzer 0 % (0-5); Neutrophil # 3.79 X10^3/uL (2.7-7.7); Neutrophil % 54.6 % (47-70); Platelet Count 220 K/mm3 (150-450); RBC Distribution Width CV 11.8 % (11.6-14.6); RBC Distribution Width SD 38.8 fl (35.1-43.9); Red Blood Count 5.33 M/mm3 (4.2-5.4); White Blood Count 6.9 K/mm3 (4.4-11.0)
[2022-09-18 08:46] LABS: ALB/GLOB Ratio 1.1 RATIO (0.9-2.4); AST(SGOT) 20 U/L (15-37); Alanine Aminotransfer ALT/SGPT 46 U/L (13-56); Albumin, Serum 3.9 g/dL (3.2-5.0); Alkaline Phosphatase 109 U/L (45-117); Anion Gap 5 (5-15); BUN 8 mg/dL (7-18); BUN/Creat Ratio 10.2 RATIO (10-20); Chloride 106 mmol/L (98-107); Cholesterol 226 mg/dL (200); Creatinine, Serum 0.79 mg/dL (0.55-1.02); EST Glomerular Filtration Rate 81 mL/min (>60); Est Glom Filt Rate - Afr Amer 98 mL/min (>60); Globulin 3.5 g/dL (2.2-4.2); Glucose 197 mg/dL (74-106); High Density Lipoprotein 54 mg/dL; Potassium 3.7 mmol/L (3.5-5.1); Protein, Total 7.4 g/dL (6.4-8.2); Sodium Level 140 mmol/L (136-145); Triglycerides 180 mg/dL; Very Low Density Lipoprotein 36 mg/dL (5-40)
[2022-09-18 08:52] LABS: Microalbumin,Random Urine 7.3 mg/L (NO RANGE EST.); Microalbumin:Creatinine Ratio 5.1 mg/g CRE (<30 mg/g CRE)
[2022-09-18 09:33] LABS: Hemoglobin A1c 7.8 % (3.8-5.6)
== END | disposition home or self-care (01) ==
PROVIDERS: PCP Family Medicine; Referring Provider Family Medicine; Visit Provider Family Medicine
DX: Z12.31 Encounter for screening mammogram for malignant neoplasm of breast (principal); E11.9 Type 2 diabetes mellitus without complications; M85.80 Other specified disorders of bone density and structure, unspecified site
CPT/HCPCS: 36415; 77063; 77067; 80053; 80061; 82043; 82570; 83036; 85025

== ENCOUNTER → 2024-05-17 | Outpatient (CLI) | payer BC, SELFPAY ==
--- NOTE | 2024-05-17 08:23 | BI_ITS ---
MAMMOGRAPHY - BILATERAL SCREENING REASON FOR EXAM: Female, 53 years old. Routine annual screening examination. PERTINENT HISTORY: Non-contributory. History of prior bilateral breast reduction surgery. TECHNIQUE: Digital bilateral breast stefanie (3D mammographic acquisition) in the CC and MLO projections. 2-D mediolateral oblique (MLO) and craniocaudad (CC) views of both breasts were obtained. CAD: Full Field Digital Mammography with Computer Added Detection was performed. COMPARISON: Comparison is made with prior study September 18, 2022 and May 28, 2021. FINDINGS: Breast Composition: There are scattered areas of fibroglandular density. There are no dominant masses or suspicious calcifications. Stable benign-appearing bilateral axillary lymph nodes. No other significant abnormalities are identified. There has been no significant change since the prior study. BI/SCRN MAMM (CAD)W/STEFANIE BILAT IMPRESSION: Stable bilateral screening mammogram. Yearly follow-up mammogram recommended. (A) ASSESSMENT CATEGORY: BIRADS Category 2: Benign. A letter regarding these results will be sent to the patient by the facility within 30 days. Approximately 10% of breast cancers are not detected by mammography. A normal mammogram should not delay biopsy of a clinically suspicious abnormality. [id number] Electronically Signed: Leonidas Rizo MD at 10:39 EDT ,
[2024-05-17 09:52] LABS: Absolute Lymphocyte Count 2.03 X10^3/uL (0.83-4.51); Absolute Neutrophil Count 4.1 X10^3/uL (2.0-7.7); Basophil# 0.04 X10^3/uL; Basophil% 0.6 % (0-1); Eosinophils% 2.9 % (0-5); Hematocrit 46.1 % (37-47); Hemoglobin 15.4 g/dL (12.0-15.0); Lymphocyte # 2.03 X10^3/ul (0.83-4.51); Lymphocyte % 29.5 % (19-41); Mean Corp Hgb Conc 33.4 g/dL (32-36); Mean Corpuscular Hgb 29.8 pg (27.0-32.0); Mean Corpuscular Volume 89.3 fL (81-99); Mean Platelet Vol. 8.8 fl (6.2-12.0); Monocyte# 0.47 X10^3/uL; Monocyte% 6.8 % (0-10); NRBC Flagged by Analyzer 0 % (0-5); Neutrophil # 4.11 X10^3/uL (2.7-7.7); Neutrophil % 59.6 % (47-70); Platelet Count 217 K/mm3 (150-450); RBC Distribution Width CV 11.9 % (11.6-14.6); RBC Distribution Width SD 38.5 fl (35.1-43.9); Red Blood Count 5.16 M/mm3 (4.2-5.4); White Blood Count 6.9 K/mm3 (4.4-11.0)
[2024-05-17 10:54] LABS: ALB/GLOB Ratio 1.1 RATIO (0.9-2.4); AST(SGOT) 25 U/L (15-37); Alanine Aminotransfer ALT/SGPT 49 U/L (13-56); Albumin, Serum 3.7 g/dL (3.2-5.0); Alkaline Phosphatase 83 U/L (45-117); Anion Gap 4 (5-15); BUN 14 mg/dL (7-18); BUN/Creat Ratio 19.4 RATIO (10-20); Calcium,Total 8.9 mg/dL (8.5-10.1); Chloride 110 mmol/L (98-107); Cholesterol 210 mg/dL (200); Creatinine, Serum 0.72 mg/dL (0.55-1.02); EST Glomerular Filtration Rate 89 mL/min (>60); Est Glom Filt Rate - Afr Amer 108 mL/min (>60); Globulin 3.5 g/dL (2.2-4.2); Glucose 182 mg/dL (74-106); High Density Lipoprotein 56 mg/dL; Potassium 3.9 mmol/L (3.5-5.1); Protein, Total 7.2 g/dL (6.4-8.2); Sodium Level 140 mmol/L (136-145); Triglycerides 137 mg/dL; Very Low Density Lipoprotein 27 mg/dL (5-40)
[2024-05-17 11:49] LABS: Microalbumin,Random Urine 8.9 mg/L (NO RANGE EST.); Microalbumin:Creatinine Ratio 7.2 mg/g CRE (<30 mg/g CRE)
== END | disposition home or self-care (01) ==
PROVIDERS: PCP Family Medicine; Referring Provider Family Medicine; Visit Provider Family Medicine
DX: Z12.31 Encounter for screening mammogram for malignant neoplasm of breast (principal); E11.9 Type 2 diabetes mellitus without complications
CPT/HCPCS: 36415; 77063; 77067; 80053; 80061; 82043; 82570; 85025

== ENCOUNTER → 2024-05-31 | Outpatient (CLI) | payer BC, SELFPAY | END | disposition home or self-care (01) | PROVIDERS: PCP Family Medicine; Referring Provider Family Medicine; Visit Provider Family Medicine | DX: G47.33 Obstructive sleep apnea (adult) (pediatric) (principal) | CPT/HCPCS: 95806 ==